=== PATIENT | male | born 1980 | race Hispanic/Latino ===

== ENCOUNTER 2019-04-23 08:05 | Emergency (ER) | payer OTHER ==
[2019-04-23] MEDS ORDERED: KETOROLAC TROMETHAMINE 60 MG/2 ML VIAL ONE (08:33)
[2019-04-23] MEDS ORDERED: METHYLPREDNISOLONE SOD SUCC 125MG/2ML VIAL ONE (08:33)
== END 2019-04-23 09:24 | disposition home or self-care (01) ==
LOC: EDH 08:05
DX: M54.5 Low back pain (principal)
CPT/HCPCS: 96372 ×2; 99284; J1885; J2930

== ENCOUNTER → 2020-09-25 | Outpatient (CLI) | payer OTHER | LOC: DAH 11:00 → EDH 15:04 → EDSTATUS 16:33 | PROVIDERS: ATTEND Emergency Medicine Emergency Medical Services | DX: U07.1 COVID-19 (principal); Z53.21 Procedure and treatment not carried out due to patient leaving prior to being seen by health care provider | CPT/HCPCS: 87426 ==

== ENCOUNTER → 2021-02-28 | Outpatient (CLI) | payer OTHER ==
[2021-02-28 08:30] LABS: BASOPHILS % (AUTO) 0.1 % (0.0-5.0); HEMATOCRIT 41.2 % (42-54); LYMPHOCYTES % (AUTO) 40.2 % (21.0-51.0); MEAN CORPUSCULAR VOLUME 82.4 fL (79-99); MONOCYTES % (AUTO) 8.4 % (3.0-13.0); NEUTROPHILS % (AUTO) 49.6 % (40.0-77.0); PLATELET COUNT (AUTO) 277 K/uL (130-400); WHITE BLOOD COUNT (AUTO) 8.4 K/uL (4.8-10.8)
[2021-02-28 08:49] LABS: HEMOGLOBIN A1C 6.2 % (4.0-6.0)
[2021-02-28 09:05] LABS: ALBUMIN 3.7 g/dL (3.5-5.0); BILIRUBIN,TOTAL 0.4 mg/dL (0.2-1.0); POTASSIUM 3.9 mmol/L (3.5-5.1); TOTAL PROTEIN, SERUM 7.5 g/dL (6.0-8.3); URIC ACID 6.7 mg/dL (2.6-7.2)
== END | disposition home or self-care (01) ==
LOC: LAB 07:45
PROVIDERS: ATTEND Internal Medicine
DX: Z13.1 Encounter for screening for diabetes mellitus (principal); L20.9 Atopic dermatitis, unspecified; L50.9 Urticaria, unspecified; R53.83 Other fatigue
CPT/HCPCS: 36415; 80053; 82306; 82607; 83036; 84425; 84550; 85025; 86038; 86215; 86235

== ENCOUNTER 2021-03-01 06:52 | Emergency (ER) | payer OTHER ==
[2021-03-01] MEDS ORDERED: METHYLPREDNISOLONE SOD SUCC 125MG/2ML VIAL ONE (07:28)
[2021-03-01] MEDS ORDERED: FAMOTIDINE/PF 20 MG/2 ML VIAL IV ONE (07:29)
== END 2021-03-01 08:26 | disposition home or self-care (01) ==
LOC: EDH 06:52
DX: L50.1 Idiopathic urticaria (principal)
CPT/HCPCS: 96374; 96375; 99284; J2930; J3490

== ENCOUNTER 2023-07-06 07:51 | Emergency (ER) | payer OTHER ==
[~2023-07-06] VITALS: Ht 190.5 cm; Wt 140.6 kg
[~2023-07-06 07:51] MED LIST: META800T72 PO
[2023-07-06] MEDS ORDERED: KETOROLAC 60 MG VIAL (30MG/ML) IM ONE (08:30)
[2023-07-06 09:40] VITALS: BP 120/75; PULSE 84; RESP 18; O2SAT 97
== END 2023-07-06 09:42 | disposition home or self-care (01) ==
LOC: EDH 07:51
DX: S93.492A Sprain of other ligament of left ankle, initial encounter (principal); W01.0XXA Fall on same level from slipping, tripping and stumbling without subsequent striking against object, initial encounter; Y93.89 Activity, other specified; Y92.89 Other specified places as the place of occurrence of the external cause; Y99.8 Other external cause status; Z98.890 Other specified postprocedural states
CPT/HCPCS: 99283; 73610; 96372; J1885; 29105

== ENCOUNTER → 2024-02-07 | Outpatient (CLI) | payer OTHER ==
[2024-02-07 08:29] LABS: BASOPHILS # (AUTO) 0.07 K/uL (0.00-0.20); BASOPHILS % (AUTO) 1.2 % (0.0-5.0); EOSINOPHILS # (AUTO) 0.13 K/uL (0.00-0.70); EOSINOPHILS % (AUTO) 2.3 % (0.0-8.0); IMMATURE GRANULOCYTE ABSOLUTE 0.02 K/uL (0-1); LYMPHOCYTES # (AUTO) 2.6 K/uL (1.0-4.8); MEAN CORPUSCULAR HEMOGLOBIN 28.8 pg (27.0-33.0); MEAN CORPUSCULAR HGB CONC 34.2 g/dL (32.0-36.0); MEAN CORPUSCULAR VOLUME 84.1 fL (79-99); MONOCYTES # (AUTO) 0.5 K/uL (0.1-1.0); MONOCYTES % (AUTO) 9.1 % (3.0-13.0); NEUTROPHILS # (AUTO) 2.4 K/uL (1.8-7.7); NEUTROPHILS % (AUTO) 41.1 % (40.0-77.0); PLATELET COUNT (AUTO) 254 K/uL (130-400); RED BLOOD CELL COUNT(AUTO) 5.35 MIL/uL (4.50-6.20); RED CELL DISTRIBUTION WIDTH 12.8 % (11.0-15.5); WHITE BLOOD COUNT (AUTO) 5.7 K/uL (4.8-10.8)
[2024-02-07 08:35] LABS: HEMOGLOBIN A1C 5.8 % (4.0-6.0)
[2024-02-07 09:08] LABS: BILIRUBIN,TOTAL 0.6 mg/dL (0.2-1.0); POTASSIUM 4.4 mmol/L (3.5-5.1); THYROID STIMULATING HORMONE 1.27 uIU/mL (0.36-3.74); TOTAL PROTEIN, SERUM 7.9 g/dL (6.0-8.3); URIC ACID 6.6 mg/dL (2.6-7.2)
== END | disposition home or self-care (01) ==
LOC: LAB 08:05
PROVIDERS: ATTEND Internal Medicine
DX: Z13.1 Encounter for screening for diabetes mellitus (principal); E34.9 Endocrine disorder, unspecified; E53.8 Deficiency of other specified B group vitamins; E55.9 Vitamin D deficiency, unspecified; G47.00 Insomnia, unspecified; J30.9 Allergic rhinitis, unspecified; M54.16 Radiculopathy, lumbar region; R53.83 Other fatigue
CPT/HCPCS: 36415; 80053; 80061; 82306; 82607; 83036; 84402; 84403; 84443; 84550; 85025

== ENCOUNTER 2025-03-17 16:28 | Emergency (ER) | payer OTHER ==
[~2025-03-17] VITALS: Ht 188 cm; Wt 136.1 kg
[~2025-03-17 16:28] MED LIST changes: +CEFA500C3 PO
--- NOTE | 2025-03-17 16:44 | ERN ---
General Chief Complaint: Abdominal Pain Stated Complaint: ABD PAIN Time Seen by MD: 16:30 Source: patient History of Present Illness Initial Comments Patient is a 44-year-old male coming in to be evaluated for right upper quadrant pain. Patient states that the pain initially began right upper back then slowly began presenting in the right upper abdominal area. States that the pain began yesterday shortly after eating chicken. No fever or chills mild nauseousness. Allergies: Coded Allergies: No Known Allergies (Unverified Allergy, Unknown, 04/23/19) Home Meds Active Scripts Cefadroxil Hydrate (Cefadroxil) 500 Mg Capsule, 500 MG PO BID for 7 Days, #14 CAP 0 Refills Prov:REJI RENDON MD 07/10/24 Metaxalone (Skelaxin) 800 Mg Tablet, 800 MG PO TIDP PRN for MUSCLE SPASMS, #20 TAB 0 Refills Prov:IVON FIELDS MD 12/27/21 Past Medical History Past Medical History: No Pertinent History Past Surgical History: Other Surgical History Other: RIGHT ACL Social History Social History: Negative, Lives with family, Other ROS Dictation CONSTITUTIONAL: No chills, no fever, no weakness, no diaphoresis, no malaise. HEAD/FACE: No signs of trauma. EENT: No eye pain, no blurred vision, no tearing, no double vision, no ear pain, no ear discharge, no nose pain, no nasal congestion, no throat pain, no throat swelling, no mouth pain. RESPIRATORY: No cough, no orthopnea, no SOB, no stridor, no wheezing. CARDIOVASCULAR: No chest pain, no edema, no palpitations, no syncope. GASTROINTESTINAL/ABDOMINAL: abdominal pain, no constipation, no diarrhea, no nausea, no vomiting. GENITOURINARY: No abnormal discharge, no dysuria, no frequent urination, no hematuria. No complaints of pain in the genitals. MUSCULOSKELETAL: No back pain, no gout, no joint pain, no joint swelling, no muscle pain, no muscle stiffness, no neck pain. INTEGUMENTARY: No change in color, no change in hair/nails, no dryness, no lesion, no lumps, no rash. NEUROLOGICAL/PSYCH: No anxiety, not depressed, no emotional problem, no headache, no numbness, no pre-existing deficit, no history of seizures, no tremors, no weakness. HEMATOLOGIC/LYMPHATIC: Not anemic, no history of blood clots, no apparent bleeding, no bruising, glands not swollen. All Systems Negative, Except as Noted. Physical Exam Physical Exam Dictation VITAL SIGNS: Reviewed. GENERAL APPEARANCE: Alert, oriented x3, no acute distress, obese. HEAD AND FACE: Non-traumatic. EYES: PERRL, pink conjunctivas, eyelid no trauma, anterior chamber clear. EARS: Pinnas intact and no signs of trauma or erythema. Ear canals clear and no discharge. TMs no erythema. NOSE: No discharge, no bleeding. OROPHARYNX: Mouth normal, teeth no caries, tongue pink. Pharynx clear, no erythema. Tonsils no exudates, no abscesses noted. Mucous membrane moist. NECK: Supple, non-tender, no thyromegaly, no masses, no JVD, no bruits. BREAST: Deferred. CHEST: No tenderness, no crepitus, no paradoxical movement, no retractions. LUNGS: Clear, well-ventilated, symmetric, no rales, no wheezing, no rhonchi, no stridor, good breath sounds bilaterally. HEART: Regular rate, regular rhythm, no murmur, no gallops. VASCULAR: No peripheral edema. ABDOMEN: Soft, positive bowel sounds, nondistended, no guarding, nontender, no rebound, no masses no hepatomegaly, no splenomegaly, no Miner's sign, no hernias. RECTAL: Deferred. GENITAL: Deferred. NEUROLOGICAL: Normal speech, gross motor function intact, gross sensory function intact. MUSCULOSKELETAL: Neck nontender, full range of motion, back nontender, full range of motion. EXTREMITIES: Nontender, full range of motion. SKIN: Color pink, dry, no turgor, no rash, no lacerations, no abrasions, no contusions. LYMPHATICS: Deferred. Results Laboratory and Microbiology Lab and Micro Result Laboratory Tests Test 03/17/25 16:46 03/17/25 18:14 White Blood Count 6.4 K/uL (4.8-10.8) Red Blood Count 4.95 MIL/uL (4.50-6.20) Hemoglobin 13.8 g/dL (14.0-18.0) L Hematocrit 41.3 % (42-54) L Mean Corpuscular Volume 83.4 fL (79-99) Mean Corpuscular Hemoglobin 27.9 pg (27.0-33.0) Mean Corpuscular Hemoglobin Concent 33.4 g/dL (32.0-36.0) Red Cell Distribution Width 13.2 % (11.0-15.5) Platelet Count 244 K/uL (130-400) Mean Platelet Volume 9.2 fL (7.5-10.5) Immature Granulocyte % (Auto) 0.3 % (0-1) Neutrophils (%) (Auto) 42.0 % (40.0-77.0) Lymphocytes (%) (Auto) 47.3 % (21.0-51.0) Monocytes (%) (Auto) 7.2 % (3.0-13.0) Eosinophils (%) (Auto) 2.4 % (0.0-8.0) Basophils (%) (Auto) 0.8 % (0.0-5.0) Neutrophils # (Auto) 2.7 K/uL (1.8-7.7) Lymphocytes # (Auto) 3.0 K/uL (1.0-4.8) Monocytes # (Auto) 0.5 K/uL (0.1-1.0) Eosinophils # (Auto) 0.15 K/uL (0.00-0.70) Basophils # (Auto) 0.05 K/uL (0.00-0.20) Absolute Immature Granulocyte (auto 0.02 K/uL (0-1) Nucleated Red Blood Cells 0.0 % (0.0-0.19) Sodium Level 138 mmol/L (136-145) Potassium Level 3.6 mmol/L (3.5-5.1) Chloride Level 103 mmol/L (101-111) Carbon Dioxide Level 29 mmol/L (21-32) Blood Urea Nitrogen 16 mg/dL (7-18) Creatinine 1.1 mg/dL (0.5-1.3) Glomerular Filtration Rate Calc 86 mL/min (>90) Random Glucose 125 mg/dL (70-105) H Total Calcium 8.6 mg/dL (8.5-10.1) Total Bilirubin 0.4 mg/dL (0.2-1.0) Aspartate Amino Transf (AST/SGOT) 28 U/L (10-37) Alanine Aminotransferase (ALT/SGPT) 49 U/L (12-78) Alkaline Phosphatase 81 U/L (50-136) Total Creatine Kinase 312 U/L (21-232) H Troponin I High Sensitivity 15 ng/L (4-75) Total Protein 7.7 g/dL (6.0-8.3) Albumin 4.0 g/dL (3.5-5.0) Lipase 51 U/L (16-77) Urine Color LIGHT-YELLOW (YELLOW) Urine Appearance CLEAR (CLEAR) Urine pH 6.0 (5.0-8.0) Urine Specific [place] 1.022 (1.001-1.031) Urine Protein NEGATIVE mg/dL (NEGATIVE) Urine Glucose (UA) NEGATIVE mg/dL (NEGATIVE) Urine Ketones NEGATIVE mg/dL (NEGATIVE) Urine Occult Blood +- (TRACE) (NEGATIVE) H Urine Nitrate NEGATIVE (NEGATIVE) Urine Bilirubin NEGATIVE mg/dL (NEGATIVE) Urine Urobilinogen 0.2 mg/dL (0.2-1.0) Urine Leukocyte Esterase NEGATIVE [place]/uL Labs Reviewed?: Yes EKG/XRAY/US/CT/MRI Ultrasound Comment [place] [address] [id number] IMAGING REPORT Signed PATIENT: LISSA SOTO MR#: [id number] : 1980 SEX: M AGE: 44 LOCATION: [facility] ORDER 35 STATUS: REG REPORT#: [id number] SERVICE 33 REASON: Adominal Pain ORDERING PHYSICIAN: PATRICK AGUIRRE MD PROCEDURE: ABDRUQLTD - US ABDOMINAL RUQ\LTD Exam Type: Right upper quadrant abdominal ultrasound with hepatic color-flow Doppler Clinical Information: Adominal Pain Comparison: none Findings: The liver shows fatty infiltration and is otherwise unremarkable. Doppler evaluation shows patent portal and hepatic veins. The gallbladder shows no significant abnormalities. Specifically, no calculi are seen. There is no evidence of acute or chronic cholecystitis. No bile duct dilatation is noted. The gallbladder wall measures 2 mm. The common bile duct measures 7mm. The right kidney measures 12.6 x 6.3 cm, and shows no hydronephrosis or calculi, masses or other abnormalities. The pancreas is unremarkable. The spleen is unremarkable. The aorta and inferior vena cava show no significant abnormalities. IMPRESSION: FATTY LIVER INFILTRATION. OTHERWISE NORMAL RIGHT UPPER QUADRANT ABDOMINAL ULTRASOUND. DICTATED BY: CARMINA ROSALES MD DATE: 03/17/251657 ELECTRONICALLY SIGNED BY: CARMINA ROSALES MD DATE: 03/17/251700 [facility] MDM: Differential diagnosis: Right upper quadrant pain, muscle strain, medication side effect Rationale: Tests considered and ordered secondary to shared decision making include: Previous outside records reviewed: Old ER visits. Risk of complication and/or morbidity or mortality of patient management: None Medications-Per medication reconciliation Patient is a 44-year-old male coming in to be evaluated for right upper quadrant pain. Patient states that initially started with right back pain radiates in the right upper quadrant area. She states that he has some discomfort so is here for further evaluation. Laboratory workup including liver enzymes are within normal limits. Ultrasound did not disclose acute findings. Patient was given anti-inflammatories we will be discharged in stable condition with a diagnosis of muscle strain. Patient also disclose that he started taking Ozempic. Did counseled him into lowering the dosage. ED Course Orders Procedure Category Date Status Time Cbc With Differential LAB 03/17/25 Complete 16:34 Comprehensive LAB 03/17/25 Complete Metabolic Panel 16:34 Troponin I High LAB 03/17/25 Complete Sensitivity 16:34 Urinalysis Profile LAB 03/17/25 In Process 16:34 Us Abdominal Ruq\Ltd US 03/17/25 Resulted 16:34 12 Lead Ekg Tracing- EKG 03/17/25 Logged Technical 16:34 Lactated Ringers PHA 03/17/25 Complete 1000ml (Lactated 17:00 Creatine Kinase, Total LAB 03/17/25 Complete 16:34 Lipase LAB 03/17/25 Complete 16:34 Ketorolac PHA 03/17/25 Complete Tromethamine 30mg/Ml 17:30 Current Medications Medications (Trade) Dose Ordered Sig/Scottie Route PRN Reason Start Time Stop Time Status Last Admin Dose Admin Ketorolac Tromethamine (toRADol) 30 mg ONCE ONCE IVP 03/17/25 17:30 03/17/25 17:48 DC 03/17/25 18:17 Lactated Ringer's 1,000 ml @ 0 mls/hr ONCE ONCE IV 03/17/25 17:00 03/17/25 17:01 DC 03/17/25 18:16 Vital Signs Date Time Temp Pulse Resp B/P (MAP) Pulse Ox O2 Delivery O2 Flow Rate FiO2 03/17/25 18:03 98.1 70 16 140/75 98 Room Air* 0 21 03/17/25 16:33 98.2 72 16 142/79 99 Room Air 0 DX & DISP Disposition: Discharge Departure Impression: Primary Impression: Muscle strain Additional Impressions: Medication side effect, Gastritis Condition: Stable Additional Instructions: FOLLOW-UP WITH PRIMARY CARE PROVIDER IN 1 TO 2 DAYS. TAKE MEDICATIONS DIRECTED HERE IN THE EMERGENCY ROOM. OKAY TO CONTINUE HOME MEDICATIONS UNLESS OTHERWISE DISCUSSED DURING YOUR VISIT IN THE EMERGENCY ROOM TODAY. RETURN TO YOUR NEAREST EMERGENCY ROOM IF SYMPTOMS WORSEN OR IF THERE IS NO IMPROVEMENT. CALL 911 IF YOU NEED IMMEDIATE ASSISTANCE. TAKE TYLENOL [id number] NEEDED AND IF NO CONTRAINDICATIONS ARE PRESENT. INCREASE ORAL HYDRATION. A WOUND CULTURE OR URINE CULTURE WAS ORDERED HERE IN THE EMERGENCY ROOM DEPARTMENT PLEASE FOLLOW-UP WITH PRIMARY CARE PROVIDER AND ADVISE THEM TO GET REPORTS FROM OUR FACILITY. IF YOU HAD ANY OMA WRAP/SPLINTS THAT WERE APPLIED HERE, PLEASE DO NOT REMOVE THEM UNTIL YOU SEE YOUR PRIMARY CARE OR SPECIALTY. Referrals: Referrals: MARY ANNE PADILLA MD (PCP) Time of Disposition: 18:49 PATIRCK AGUIRRE MD Mar 17, 2025 16:44
[2025-03-17 16:52] LABS: BASOPHILS # (AUTO) 0.05 K/uL (0.00-0.20); BASOPHILS % (AUTO) 0.8 % (0.0-5.0); EOSINOPHILS # (AUTO) 0.15 K/uL (0.00-0.70); EOSINOPHILS % (AUTO) 2.4 % (0.0-8.0); HEMATOCRIT 41.3 % (42-54); IMMATURE GRANULOCYTE ABSOLUTE 0.02 K/uL (0-1); LYMPHOCYTES % (AUTO) 47.3 % (21.0-51.0); MEAN CORPUSCULAR HEMOGLOBIN 27.9 pg (27.0-33.0); MEAN CORPUSCULAR HGB CONC 33.4 g/dL (32.0-36.0); MEAN CORPUSCULAR VOLUME 83.4 fL (79-99); MONOCYTES # (AUTO) 0.5 K/uL (0.1-1.0); MONOCYTES % (AUTO) 7.2 % (3.0-13.0); NEUTROPHILS # (AUTO) 2.7 K/uL (1.8-7.7); PLATELET COUNT (AUTO) 244 K/uL (130-400); RED BLOOD CELL COUNT(AUTO) 4.95 MIL/uL (4.50-6.20); RED CELL DISTRIBUTION WIDTH 13.2 % (11.0-15.5); WHITE BLOOD COUNT (AUTO) 6.4 K/uL (4.8-10.8)
--- NOTE | 2025-03-17 17:01 | HMCIMG ---
Exam Type: Right upper quadrant abdominal ultrasound with hepatic color-flow Doppler Clinical Information: Adominal Pain Comparison: none Findings: The liver shows fatty infiltration and is otherwise unremarkable. Doppler evaluation shows patent portal and hepatic veins. The gallbladder shows no significant abnormalities. Specifically, no calculi are seen. There is no evidence of acute or chronic cholecystitis. No bile duct dilatation is noted. The gallbladder wall measures 2 mm. The common bile duct measures 7mm. The right kidney measures 12.6 x 6.3 cm, and shows no hydronephrosis or calculi, masses or other abnormalities. The pancreas is unremarkable. The spleen is unremarkable. The aorta and inferior vena cava show no significant abnormalities. IMPRESSION: FATTY LIVER INFILTRATION. OTHERWISE NORMAL RIGHT UPPER QUADRANT ABDOMINAL ULTRASOUND.
[2025-03-17 17:05] LABS: CREATININE 1.1 mg/dL (0.5-1.3); POTASSIUM 3.6 mmol/L (3.5-5.1)
[2025-03-17 17:14] LABS: BILIRUBIN,TOTAL 0.4 mg/dL (0.2-1.0); TOTAL PROTEIN, SERUM 7.7 g/dL (6.0-8.3)
[2025-03-17 18:03] VITALS: BP 140/75; PULSE 70; RESP 16; TEMP 98.1; O2SAT 98
[2025-03-17] MEDS: LACTATED RINGERS 1000ML 1,000 ML IV ONE (18:16)
[2025-03-17] MEDS: ketOROlac 30MG VIAL (30MG/ML) IVP ONE (18:17)
[2025-03-17 18:39] LABS: APPEARANCE,URINE CLEAR (CLEAR); BILIRUBIN,URINE NEGATIVE (NEGATIVE); COLOR,URINE LIGHT-YELLOW (YELLOW); GLUCOSE, URINE (UA) NEGATIVE (NEGATIVE); KETONES,URINE NEGATIVE (NEGATIVE); LEUKOCYTE ESTERASE ,URINE NEGATIVE Leu/uL (NEGATIVE); NITRATE,URINE NEGATIVE (NEGATIVE); PROTEIN,URINE NEGATIVE (NEGATIVE); UROBILINOGEN,URINE 0.2 mg/dL (0.2-1.0)
[2025-03-17 18:41] LABS: ADD UA MICROSCOPIC YES
[2025-03-17 18:54] LABS: MUCUS,URINE RARE LPF (None Seen); WBC,URINE 0-1 /HPF (0-1)
--- NOTE | 2025-03-18 04:49 | EKG ---
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
== END 2025-03-17 19:02 | disposition home or self-care (01) ==
LOC: EDH 16:28
DX: S39.011A Strain of muscle, fascia and tendon of abdomen, initial encounter (principal); K29.70 Gastritis, unspecified, without bleeding; X58.XXXA Exposure to other specified factors, initial encounter; Y93.89 Activity, other specified; Y92.89 Other specified places as the place of occurrence of the external cause; Y99.8 Other external cause status
CPT/HCPCS: 99285; 96374; 76705; 96361; 82550; 84484; 80053; 83690; 85025; 81001; 36415; 93005; J1885; J7120

== ENCOUNTER → 2025-03-24 | Outpatient (CLI) | payer OTHER ==
[2025-03-24 10:07] LABS: BASOPHILS # (AUTO) 0.08 K/uL (0.00-0.20); BASOPHILS % (AUTO) 1.5 % (0.0-5.0); EOSINOPHILS # (AUTO) 0.09 K/uL (0.00-0.70); EOSINOPHILS % (AUTO) 1.7 % (0.0-8.0); HEMATOCRIT 42.3 % (42-54); IMMATURE GRANULOCYTE ABSOLUTE 0.01 K/uL (0-1); LYMPHOCYTES # (AUTO) 2.6 K/uL (1.0-4.8); LYMPHOCYTES % (AUTO) 50.7 % (21.0-51.0); MEAN CORPUSCULAR HGB CONC 33.8 g/dL (32.0-36.0); MEAN CORPUSCULAR VOLUME 82.9 fL (79-99); MONOCYTES # (AUTO) 0.4 K/uL (0.1-1.0); MONOCYTES % (AUTO) 8.3 % (3.0-13.0); NEUTROPHILS % (AUTO) 37.6 % (40.0-77.0); PLATELET COUNT (AUTO) 257 K/uL (130-400); RED CELL DISTRIBUTION WIDTH 12.9 % (11.0-15.5); WHITE BLOOD COUNT (AUTO) 5.2 K/uL (4.8-10.8)
[2025-03-24 10:12] LABS: APPEARANCE,URINE CLEAR (CLEAR); BILIRUBIN,URINE NEGATIVE (NEGATIVE); COLOR,URINE LIGHT-YELLOW (YELLOW); GLUCOSE, URINE (UA) NEGATIVE (NEGATIVE); KETONES,URINE NEGATIVE (NEGATIVE); LEUKOCYTE ESTERASE ,URINE NEGATIVE Leu/uL (NEGATIVE); NITRATE,URINE NEGATIVE (NEGATIVE); OCCULT BLOOD,URINE SMALL (NEGATIVE); PH,URINE 5.5 (5.0-8.0); PROTEIN,URINE NEGATIVE (NEGATIVE); UROBILINOGEN,URINE 0.2 mg/dL (0.2-1.0)
[2025-03-24 10:16] LABS: ADD UA MICROSCOPIC YES
[2025-03-24 10:19] LABS: MUCUS,URINE RARE LPF (None Seen); SQUAMOUS EPITHELIAL CELL,UR RARE /HPF (0-2); WBC,URINE 0-1 /HPF (0-1)
[2025-03-24 10:23] LABS: HEMOGLOBIN A1C 5.8 % (4.0-6.0)
[2025-03-24 10:35] LABS: ALBUMIN 4.1 g/dL (3.5-5.0); BILIRUBIN,DIRECT 0.1 mg/dL (0.0-0.3); BILIRUBIN,TOTAL 0.6 mg/dL (0.2-1.0); POTASSIUM 3.9 mmol/L (3.5-5.1); THYROID STIMULATING HORMONE 1.15 uIU/mL (0.36-3.74); TOTAL PROTEIN, SERUM 7.9 g/dL (6.0-8.3)
[2025-03-24 11:11] LABS: ERYTHROCYTE SEDIMENTATION RATE 2 MM/HR (0-15)
== END | disposition home or self-care (01) ==
LOC: LAB 09:10
PROVIDERS: ATTEND Internal Medicine
DX: E29.1 Testicular hypofunction (principal); E66.9 Obesity, unspecified; J30.9 Allergic rhinitis, unspecified; K29.70 Gastritis, unspecified, without bleeding; R53.83 Other fatigue; R73.01 Impaired fasting glucose; Z00.00 Encounter for general adult medical examination without abnormal findings; Z13.220 Encounter for screening for lipoid disorders
CPT/HCPCS: 36415; 80053; 80061; 80076; 81001; 82043; 82570; 83036; 83690; 84402; 84403; 84443; 85025; 85651; 86140

== ENCOUNTER → 2025-03-30 | Outpatient (CLI) | payer OTHER ==
--- NOTE | 2025-03-30 12:31 | HMCIMG ---
CT ABD/PEL WO CON RENAL/APPY HISTORY: Renal stone COMPARISON: None TECHNIQUE: Multiple sequential axial images of the abdomen and pelvis were obtained from the dome of the diaphragm through symphysis pubis. Patient was not given contrast through intravenous route. Oral contrast was not given. FINDINGS: No pleural effusion is seen bilaterally. There is no evidence of parenchymal disease or pulmonary nodule of the visualized lower lungs. Degenerative changes of the thoracolumbar spine are present. The heart is not enlarged. The liver, spleen, adrenal glands and pancreas are unremarkable. There is no evidence of hydronephrosis bilaterally. No evidence of renal stone is seen. Fecal material is seen in the colon. There are normal size retroperitoneal and mesenteric lymph nodes. No ascites is seen. No CT evidence of acute appendicitis is seen. Pelvic sidewalls are symmetric bilaterally. Bladder is well distended without wall thickening. IMPRESSION: 1. No hydronephrosis is seen. No CT evidence of renal stone is seen. CT was performed with one or more following dose reduction techniques: automated exposure control, adjustment of the mA and kv according to patient's size, or use of a iterative reconstruction technique.
== END | disposition home or self-care (01) ==
LOC: RAH 10:16
PROVIDERS: ATTEND Internal Medicine
DX: N20.0 Calculus of kidney (principal); R19.5 Other fecal abnormalities; M47.815 Spondylosis without myelopathy or radiculopathy, thoracolumbar region
CPT/HCPCS: 74176

== ENCOUNTER → 2025-04-15 | Outpatient (CLI) | payer OTHER ==
[2025-04-15 12:08] LABS: IMMATURE GRANULOCYTE ABSOLUTE 0.02 K/uL (0-1); NUCLEATED RED BLOOD CELLS 0.0 % (0.0-0.19); PLATELET COUNT (AUTO) 268 K/uL (130-400); RED BLOOD CELL COUNT(AUTO) 5.06 MIL/uL (4.50-6.20); RED CELL DISTRIBUTION WIDTH 13.2 % (11.0-15.5); WHITE BLOOD COUNT (AUTO) 6.8 K/uL (4.8-10.8)
[2025-04-15 12:31] LABS: ASPARTATE AMINOTRANSFERASE 27.0 U/L (10-37); CREATININE 0.9 mg/dL (0.5-1.3); GLOMERULAR FILTR. RATE CALC 109.0 mL/min (>90); GLUCOSE,RANDOM 119.0 mg/dL (70-105); SODIUM SERUM 141.0 mmol/L (136-145); TOTAL PROTEIN, SERUM 7.9 g/dL (6.0-8.3); UREA NITROGEN, BLOOD 13.0 mg/dL (7-18)
[2025-04-15 13:28] LABS: ERYTHROCYTE SEDIMENTATION RATE 5 MM/HR (0-15)
== END | disposition home or self-care (01) ==
LOC: LAB 11:48
PROVIDERS: ATTEND Internal Medicine
DX: K21.9 Gastro-esophageal reflux disease without esophagitis (principal); E55.9 Vitamin D deficiency, unspecified; E66.09 Other obesity due to excess calories; K29.70 Gastritis, unspecified, without bleeding; R73.01 Impaired fasting glucose; M51.34 Other intervertebral disc degeneration, thoracic region
CPT/HCPCS: 36415; 80053; 83690; 85025; 85651; 86140

== ENCOUNTER → 2025-04-22 | Outpatient (CLI) | payer OTHER ==
--- NOTE | 2025-04-22 20:40 | HMCIMG ---
EXAM: MR Thoracic Spine Without Intravenous Contrast. CLINICAL HISTORY: Radiculopathy. TECHNIQUE: Magnetic resonance images of the thoracic spine in multiple planes. CONTRAST: None. COMPARISON: None. FINDINGS: The cervicothoracic and thoracolumbar junction are intact. No acute fracture. Normal thoracic curvature. Multilevel spondylosis is evident by marginal osteophytes, Schmorl???s nodes, and facet joint arthropathy. Multilevel disc desiccation and degenerative disc height reduction noted, more pronounced at the T5-T6 level. Normal vertebral body heights. Normal marrow signal of the vertebrae. No abnormal cord signal. No abnormal extra-axial masses are present. The prevertebral and paravertebral soft tissues are within normal limits. Bgsac-uk-buzih findings are as follows: C7-T1: No disc bulge or herniation. No neural foraminal, lateral recess or spinal canal stenosis. T1-T2: No disc bulge or herniation. No neural foraminal, lateral recess or spinal canal stenosis. T2-T3: No disc bulge or herniation. No neural foraminal, lateral recess or spinal canal stenosis. T3-T4: 3 mm central disc osteophyte complex bulge causing mild canal narrowing with indentation on the anterior cord. No neural foraminal or lateral recess stenosis. T4-T5: 3 mm central disc osteophyte complex bulge causing mild canal narrowing with indentation on the anterior cord. No neural foraminal or lateral recess stenosis. T5-T6: 3 mm central disc osteophyte complex bulge causing mild canal narrowing with indentation on the anterior cord. No neural foraminal or lateral recess stenosis. T6-T7: No disc bulge or herniation. No neural foraminal, lateral recess or spinal canal stenosis. T7-T8: 3 mm central disc osteophyte complex bulge causing mild canal narrowing with indentation on the anterior cord. No neural foraminal or lateral recess stenosis. T8-T9: No disc bulge or herniation. No neural foraminal, lateral recess or spinal canal stenosis. T9-T10: 2 mm disc osteophyte complex bulge causing mild indentation on the anterior thecal sac. No neural foraminal narrowing stenosis. T10-T11: Facet joint arthropathy causing mild indentation on the posterior thecal sac. No disc bulge or herniation. No neural foraminal, or lateral recess stenosis. T11-T12: 3 mm disc osteophyte compress bulge and facet joint arthropathy causing mild canal narrowing. No neural foraminal, or lateral recess stenosis. T12-L1: No disc bulge or herniation. No neural foraminal, lateral recess or spinal canal stenosis. IMPRESSION: Mild multilevel spondylosis and degenerative disc changes. Mild canal narrowing with indentation on the anterior cord at the T3-T4, T4-T5, T5-T6, and T7-T8 levels. Mild indentation on the anterior thecal sac at the T9-T10 level. Mild indentation on the posterior thecal sac at the T10-T11 level. Mild canal narrowing at the T11-T12 level. /[place]
== END | disposition home or self-care (01) ==
LOC: RAH 15:10
PROVIDERS: ATTEND Internal Medicine
DX: M51.14 Intervertebral disc disorders with radiculopathy, thoracic region (principal); M47.24 Other spondylosis with radiculopathy, thoracic region; M48.04 Spinal stenosis, thoracic region; M25.78 Osteophyte, vertebrae
CPT/HCPCS: 72146

== ENCOUNTER 2025-06-02 07:50 | Day surgery (SDC) | payer OTHER ==
[2025-06-02] VITALS (10 sets, daily range): BP systolic 110–132; BP diastolic 57–76; PULSE 61–68; RESP 14–18; TEMP 97.1–98.2
[~2025-06-02] VITALS: Ht 188 cm; Wt 122.5 kg
[2025-06-02] MEDS: 0.9%NACL 1000ML 1,000 ML IV ONE (10:43)
--- NOTE | 2025-06-02 13:20 | NUR ---
BOTH PT AND FRIEND GIVEN VERBAL AND WRITTEN DISCHARGE INSTRUCTIONS. IV REMOVED SITE ASYMPTOMATIC. PT TAKEN OUT VIA WHEELCHAIR FRIEND DRIVING
== END 2025-06-02 13:15 | disposition home or self-care (01) ==
LOC: DAH 07:50 → ENDO 07:50
PROVIDERS: ATTEND Internal Medicine
DX: R12 Heartburn (principal); K31.7 Polyp of stomach and duodenum; K29.70 Gastritis, unspecified, without bleeding; B96.81 Helicobacter pylori [H. pylori] as the cause of diseases classified elsewhere; K29.80 Duodenitis without bleeding; R10.10 Upper abdominal pain, unspecified; M19.90 Unspecified osteoarthritis, unspecified site; K76.9 Liver disease, unspecified; R14.0 Abdominal distension (gaseous); Z79.899 Other long term (current) drug therapy
CPT/HCPCS: 43239; J7030; J2704; A4620; A4215; J3490

== ENCOUNTER → 2025-08-18 | Outpatient (CLI) | payer OTHER ==
[~2025-08-18] MED LIST changes: +AMOX1TAB16 PO; -CEFA500C3 PO; -META800T72 PO; +NAPR-1192 PO
== END | disposition home or self-care (01) ==
LOC: LAB 07:25
PROVIDERS: ATTEND Internal Medicine Gastroenterology
DX: K29.50 Unspecified chronic gastritis without bleeding (principal); B96.81 Helicobacter pylori [H. pylori] as the cause of diseases classified elsewhere
CPT/HCPCS: 83013

== ENCOUNTER 2025-10-06 06:44 | Emergency (ER) | payer OTHER ==
[~2025-10-06] VITALS: Ht 188 cm; Wt 125.2 kg
[2025-10-06] MEDS: ORPHENADRINE 60MG/2ML IM ONE (07:43)
[2025-10-06] MEDS ORDERED: KETO10 PO (09:09)
[2025-10-06] MEDS ORDERED: LIDO1ADH71 TP (09:09)
--- NOTE | 2025-10-06 09:09 | ERN ---
General Chief Complaint: Back Pain-No Injury Stated Complaint: C/O RT LOWER BACK PAIN RADIATING DOWN RT LEG Time Seen by MD: 07:16 History of Present Illness Initial Comments 45-year-old male who came to the ER with complain of back pain. As per the patient, he had accident in June this year after which she developed back pain in his upper back and now the pain is lower back radiating to his right leg and foot. Timing/Duration: getting worse Modifying Factors: improves with movement Allergies: Coded Allergies: No Known Allergies (Unverified Allergy, Unknown, 04/23/19) Home Meds Active Scripts Ketorolac Tromethamine (Toradol) 10 Mg Tab, 1 TAB PO BID for pain for 10 Days, #20 TAB 0 Refills Prov:SYLVIA BUCKLEY MD 10/06/25 Lidocaine (Lidocaine Pain Relief) 4 % Adh..patch, 1 PATCH TP DAILY for 10 Days, #10 PATCH 0 Refills Prov:SYLVIA BUCKLEY MD 10/06/25 Naproxen (Naproxen) 375 Mg Tablet, 1 TAB PO BID for pain for 7 Days, #14 TAB 0 Refills with food Prov:PATRICK AGUIRRE MD 06/17/25 Amoxicillin/Potassium Clav (Amox Tr-K Clv 875-125 mg Tab) 875 Mg-125 Mg Tablet, 1 TAB PO BID for 10 Days, #20 TAB 0 Refills Prov:PATRICK AGUIRRE MD 06/17/25 Past Medical History Past Medical History: No Pertinent History Past Surgical History: Other Surgical History Other: KNEE SX Social History Social History: Negative, Lives with family, Other Musculoskeletal: (+) back pain Physical Exam General Appearance: (+) mild distress Orientation: (+) alert, (+) oriented x 3 Ear, Nose, Throat: (-) hearing grossly normal, (-) normal ENT inspection, (-) moist mucous membraine, (-) normal pharynx, (-) normal TM, (-) abnormal TM, (-) pharyngeal erythema, (-) sinus drainange, (-) sinus pain, (-) tonsillar exudate, (-) tonsillar swelling, (-) nasal drip, (-) nasal congestion, (-) hearing decreased, (-) dry mucous membraine, (-) other documentation Neck: (-) normal inspection, (-) supple, (-) full range of motion, (-) no JVD, (-) non-tender, (-) no bruit, (-) tender, (-) limited range of motion, (-) tender lateral, (-) tender midline, (-) thyromegaly, (-) lymphadenopathy, (-) masses, (-) carotid bruit, (-) other documentaion Respiratory: (-) chest non-tender, (-) lungs clear, (-) well ventilated, (-) decreased breath sounds, (-) retractions, (-) abnormal breath sound, (-) crackles, (-) plerual rub, (-) rales, (-) rhonchi, (-) stridor, (-) wheezing, (- ) other documentation Heart: (-) regular, (-) no gallop, (-) murmur, (-) irregular, (-) bradycardia, (-) tachycardia, (-) systolic murmur, (-) diastolic murmur, (-) extra beats, (-) friction rub, (-) gallop/S3, (-) gallop/S4, (-) other documentation Gastrointestinal: (-) soft, (-) non-tender, (-) no organomegaly, (-) bowel sound present, (-) distended, (-) tender, (-) abnormal bowel sounds, (-) bowel sound absent, (-) rebound, (-) sanchez's sign, (-) guarding, (-) hernia, (-) mass, (-) pulsatile mass, (-) CVA tenderness, (-) hepatomegaly, (-) spleenomegaly, (-) other documentation, (-) McBerney's, (-) other documentation Back Comment Back pain MDM MDM: Differential diagnosis: Rationale: Tests considered and ordered secondary to shared decision making include: Previous outside records reviewed: Old ER visits. Risk of complication and/or morbidity or mortality of patient management: None Medications-Per medication reconciliation Need for hospitalization: Patient does not meet criteria for hospitalization. Need for emergency major/minor surgery: No There are no social concerns with this patient. Prescription drug management Prescriptions will include symptomatic care Patient's prior external medical records from other ER visits were reviewed by me as indicated. Prior testing and results from previous visits were reviewed. Prior tests were taken into account with medical decision making and resource utilization, independent historian/historians were used to obtain complete medical history. I independently interpreted the test that were performed, results were reviewed by me and considered findings on radiology if ordered. Medical management and examination interpretation discussions were had by me with other qualified healthcare professionals as indicated for the patient's care. ED Course Orders Procedure Category Date Status Time Orphenadrine Citrate PHA 10/06/25 Complete (Norflex) 07:00 Ketorolac PHA 10/06/25 Complete Tromethamine 30mg/Ml 07:00 Lidocaine (Lidocaine PHA 10/06/25 Complete Patch 4%) 08:30 Current Medications Medications (Trade) Dose Ordered Sig/Scottie Route PRN Reason Start Time Stop Time Status Last Admin Dose Admin Ketorolac Tromethamine (toRADol) 30 mg ONCE ONCE IM 10/06/25 07:00 10/06/25 07:01 DC 10/06/25 07:43 Lidocaine (Lidocaine Patch 4%) 1 each ONCE ONCE TP 10/06/25 08:30 10/06/25 08:31 DC Orphenadrine Citrate (Norflex) 60 mg ONCE ONCE IM 10/06/25 07:00 10/06/25 07:01 DC 10/06/25 07:43 Vital Signs Date Time Temp Pulse Resp B/P (MAP) Pulse Ox O2 Delivery O2 Flow Rate FiO2 10/06/25 07:50 96.6 65 18 129/94 99 Room Air* 0 21 10/06/25 06:46 96.1 69 20 127/81 100 Room Air DX & DISP Disposition: Discharge Departure Impression: Primary Impression: Acute on chronic back pain Condition: Stable Scripts Ketorolac Tromethamine (Toradol) 10 Mg Tab 1 TAB PO BID for pain for 10 Days, #20 TAB 0 Refills Prov: SYLVIA BUCKLEY MD 10/06/25 Lidocaine (Lidocaine Pain Relief) 4 % Adh..patch 1 PATCH TP DAILY for 10 Days, #10 PATCH 0 Refills Prov: SYLVIA BUCKLEY MD 10/06/25 Referrals: MARY ANNE PADILLA MD (PCP) SYLVIA BUCKLEY MD Oct 06, 2025 09:09 JULISSA MARSHALL MD Oct 06, 2025 09:25
[2025-10-06] MEDS: LIDOCAINE 4% ADH..PATCH TP ONE (09:28)
[2025-10-06 09:41] VITALS: BP 142/83; PULSE 59; RESP 18; TEMP 96.6; O2SAT 100
== END 2025-10-06 09:40 | disposition home or self-care (01) ==
LOC: EDH 06:44
DX: M54.50 Low back pain, unspecified (principal); G89.29 Other chronic pain; M54.6 Pain in thoracic spine
CPT/HCPCS: 99284; 96372 ×2; J1885; J2360